=== PATIENT | male | born 1945 | race Caucasian/White ===

== ENCOUNTER 2024-11-01 13:16 | Emergency (ER) | payer OTHER, MEDICARE ==
[~2024-11-01] VITALS: Ht 172.7 cm; Wt 76.2 kg
[2024-11-01] MEDS ORDERED: OFEV1CAP2 PO (13:45)
[2024-11-01] MEDS ORDERED: GABA-1635 PO (13:45)
[2024-11-01] MEDS ORDERED: OMEP40CA5 PO (13:45)
[2024-11-01] MEDS ORDERED: JARD1TAB3 PO (13:45)
[2024-11-01] MEDS ORDERED: ATEN25TA PO (13:45)
[2024-11-01] MEDS ORDERED: SEMA1PEN2 SQ (13:45)
[2024-11-01] MEDS ORDERED: SIMV20TA22 PO (13:45)
[2024-11-01] MEDS ORDERED: DULO1CAP6 PO (13:45)
[2024-11-01] MEDS ORDERED: ASPI81CH33 PO (13:45)
[2024-11-01] MEDS: ASPIRIN 81 MG CHEWABLE TABLET PO ONE (14:12)
[2024-11-01 14:19] LABS: BASO # 0.0 10^3/uL (0.0-0.2); BASO % 0.3 % (0.0-1.0); EOS # 0.5 10^3/uL (0.0-0.5); EOS % 3.5 % (0.0-3.0); LYMPH # 2.1 10^3/uL (1.5-5.0); LYMPH % 16.7 % (24.0-44.0); MONO # 1.2 10^3/uL (0.0-0.8); MONO % 9.6 % (2.0-8.0); NEUTROPHILS # 8.9 10^3/uL (1.5-8.5); NEUTROPHILS % 69.6 % (36.0-66.0); PLATELET COUNT, AUTOMATED 203 10^3/uL (150-450)
[2024-11-01 14:41] LABS: CK-MB VALUE MASS 1.4 NG/ML (<3.6)
[2024-11-01 14:45] LABS: ALT/SGPT 20 U/L (7.0-40); AST/SGOT 25 U/L (<34); CALCIUM LEVEL 9.7 MG/DL (8.3-10.6); CARBON DIOXIDE LEVEL 28 MMOL/L (20-31); CHLORIDE LEVEL 98 MMOL/L (98-107); CREATININE FOR GFR 0.69 MG/DL (0.70-1.30); GLOMERULAR FILTRATION RATE > 90.0 (>42); POTASSIUM SERUM 4.6 MMOL/L (3.5-5.1); SODIUM LEVEL 140 MMOL/L (136-145); THYROXINE (T4) 5.7 UG/DL (4.5-10.9)
[2024-11-01 14:55] LABS: CPK CREATINE PHOSPHOKINASE 39 U/L (46-171); MB/CK RELATIVE INDEX 3.58 (< OR =4)
[2024-11-01] MEDS ORDERED: ISOVUE-370 76% 100 ML VIAL As Ordered ONE (15:01)
[2024-11-01] MEDS ORDERED: HOME MED LIST COMPLETE! XX SCH (15:40)
[2024-11-01 15:45] LABS: CK-MB VALUE MASS 1.4 NG/ML (<3.6)
[2024-11-01 15:51] LABS: CPK CREATINE PHOSPHOKINASE 34.0 U/L (46-171); MB/CK RELATIVE INDEX 4.11 (< OR =4)
[2024-11-01 17:01] VITALS: BP 121/67; O2SAT 96
[2024-11-01] MEDS ORDERED: LEVO1TAB40 PO (17:31)
[2024-11-01] MEDS ORDERED: SUCR1ORA PO (17:31)
[2024-11-01] MEDS: SUCRALFATE SUSP 1GM/10ML UD PO ONE (17:36)
[2024-11-01 17:39] VITALS: TEMP 98.7
== END 2024-11-01 17:41 | disposition home or self-care (01) ==
LOC: M ED 13:16
DX: R07.9 Chest pain, unspecified (principal); K21.9 Gastro-esophageal reflux disease without esophagitis; I44.0 Atrioventricular block, first degree; I25.2 Old myocardial infarction; I27.20 Pulmonary hypertension, unspecified; I10 Essential (primary) hypertension; J92.0 Pleural plaque with presence of asbestos; Z79.1 Long term (current) use of non-steroidal anti-inflammatories (NSAID); Z79.4 Long term (current) use of insulin; Z79.899 Other long term (current) drug therapy
CPT/HCPCS: 36415; 71045; 71275; 80048; 80076; 82550; 82553; 83605; 83880; 84145; 84436; 84443; 84484; 85025; 87040; 87486; 87581; 87633; 87798; 93005; 93041; 94760; 99285; Q9967